=== PATIENT | female | born 1985 | race Two or more races ===

== ENCOUNTER → 2019-05-24 | Outpatient (CLI) | payer OTHER | END | disposition home or self-care (01) | LOC: PRENATAL 08:30 | DX: O35.3XX0 Maternal care for (suspected) damage to fetus from viral disease in mother, not applicable or unspecified (principal) ==

== ENCOUNTER → 2019-09-19 | Outpatient (CLI) | payer OTHER | END | disposition home or self-care (01) | LOC: PRENATAL 13:00 | DX: O26.843 Uterine size-date discrepancy, third trimester (principal); O35.0XX3 Maternal care for (suspected) central nervous system malformation in fetus, fetus 3; O36.5993 Maternal care for other known or suspected poor fetal growth, unspecified trimester, fetus 3 ==

== ENCOUNTER 2019-10-02 19:31 | Inpatient (IN) | payer OTHER ==
[~2019-10-02] VITALS: Ht 160 cm; Wt 60.3 kg
[2019-10-02] MEDS ORDERED: PRENATAL TABLE1 EACH PO (22:21)
== END 2019-10-05 12:48 | disposition home or self-care (01) | DRG 807 ==
LOC: SURG-SUITE 19:31 → LDR 19:31 → SURG-SUITE 10-03 11:06
PROVIDERS: ADMIT Obstetrics & Gynecology
PROC: 10907ZC Drainage of Amniotic Fluid, Therapeutic from Products of Conception, Via Natural or Artificial Opening (ICD-10-PCS; 2019-10-02)
PROC: 3E033VJ Introduction of Other Hormone into Peripheral Vein, Percutaneous Approach (ICD-10-PCS; 2019-10-02)
PROC: 3E0P7VZ Introduction of Hormone into Female Reproductive, Via Natural or Artificial Opening (ICD-10-PCS; 2019-10-02)
PROC: 4A1HXCZ Monitoring of Products of Conception, Cardiac Rate, External Approach (ICD-10-PCS; 2019-10-02)
PROC: 10E0XZZ Delivery of Products of Conception, External Approach (ICD-10-PCS; principal; 2019-10-03)
DX: O80 Encounter for full-term uncomplicated delivery (principal); Z37.0 Single live birth; Z3A.37 37 weeks gestation of pregnancy

== ENCOUNTER → 2019-10-02 | Outpatient (CLI) | payer OTHER ==
[~2019-10-02] MED LIST: PRENATAL TABLE1 EACH PO
== END | disposition home or self-care (01) ==
LOC: PRENATAL 09:00
DX: O26.843 Uterine size-date discrepancy, third trimester (principal); O36.8130 Decreased fetal movements, third trimester, not applicable or unspecified; O35.0XX0 Maternal care for (suspected) central nervous system malformation in fetus, not applicable or unspecified; O36.5930 Maternal care for other known or suspected poor fetal growth, third trimester, not applicable or unspecified